=== PATIENT | female | born 1980 ===

== ENCOUNTER 2018-05-15 19:05 | Inpatient (IN) | payer MEDICAID, OTHER ==
[~2018-05-15] VITALS: Ht 167.6 cm; Wt 74.9 kg
--- NOTE | 2018-05-15 19:19 | NUR ---
PRESENT IN [facility] [employer] FOR ABNORMAL LABS. REPORTS N/V/D X 4 DAYS- SEEN BY MEDICAL AT FACILITY AND FOUND TO HAVE DECREASED KIDNEY FUNCTION-TRANSFERRED FOR EVAL. ON ARRIVAL 99.1,79, 121/53. APPEARS WELL. PLACED ON MONITOR/CALL RODRIGUEZ IN HAND
[2018-05-15] MEDS ORDERED: OMEPRAZOLE (19:38)
[2018-05-15] MEDS ORDERED: LISINOPRIL (19:38)
[2018-05-15 19:40] LABS: BASOPHILS # (AUTO) 0.03 x10^3/uL (0-0.1); BASOPHILS % (AUTO) 0 % (0-1); EOSINOPHILS # (AUTO) 0.27 x10^3/uL (0-0.4); EOSINOPHILS % (AUTO) 4 % (1-7); LYMPHOCYTES # (AUTO) 2.18 x10^3/uL (1-3.4); LYMPHOCYTES % (AUTO) 33 % (22-44); MD NO; MEAN CORPUSCULAR HEMOGLOBIN 24.4 pg (27.0-34.8); MEAN CORPUSCULAR HGB CONC 32.5 g/dL (32.4-35.8); MEAN PLATELET VOLUME 8.4 fL (7.4-10.4); MONOCYTES # (AUTO) 0.62 x10^3/uL (0.2-0.8); MONOCYTES % (AUTO) 9 % (2-9); NEUTROPHILS # (AUTO) 3.46 x10^3/uL (1.8-6.8); NEUTROPHILS % (AUTO) 53 % (42-75); PLATELET COUNT 380 x10^3/uL (130-400); RED BLOOD COUNT 4.73 x10^6/uL (3.82-5.3); RED CELL DISTRIBUTION WIDTH 20.5 % (9.6-15.2)
[2018-05-15 19:41] LABS: ALANINE AMINOTRANSFERASE 18 U/L (12-78); ALBUMIN 3.7 g/dL (3.4-5.0); ANION GAP 5 mmol/L (5-15); CALCIUM 8.3 mg/dL (8.5-10.1); CHLORIDE 106 mmol/L (98-107); CREATININE 2.54 mg/dL (0.55-1.02)
[2018-05-15 19:46] LABS: ALKALINE PHOSPHATASE 85 U/L (45-117); BILIRUBIN,TOTAL 0.4 mg/dL (0.2-1.0); TOTAL PROTEIN 7.2 g/dL (6.4-8.2)
[2018-05-15 19:52] LABS: CULTURE INDICATED? YES; MICROSCOPIC INDICATED
--- NOTE | 2018-05-15 20:43 | NUR ---
pt resting in room with eduar x2 at bedside. vss. no needs at this time. awaiting room assignment.
[2018-05-15] MEDS ORDERED: SODIUM CHLORIDE 0.9% 1,000ML IVBOLUS ONE (21:00)
--- NOTE | 2018-05-15 21:00 | NUR ---
hospitalist to bedside for assessment.
[2018-05-15] MEDS ORDERED: ACETAMINOPHEN 325 MG TABLET PO PRN (21:30)
[2018-05-15] MEDS ORDERED: POTASSIUM CHLORIDE 20 MEQ TAB.ER.PRT PO ONE (21:30)
[2018-05-15] MEDS ORDERED: LABETALOL 5MG/ML, 20ML IVPush PRN (21:30)
[2018-05-15 22:00] VITALS: BP 88/56
[2018-05-15] MEDS ORDERED: POTASSIUM CHLORIDE 20 MEQ in SODIUM CHLORIDE 0.9% 250 ML IV ONE (22:17)
[2018-05-15] MEDS ORDERED: PLEASE ENTER ALLERGIES MC SCH (22:30)
[2018-05-15] MEDS: HEPARIN 5,000 UNITS/ML, 1ML SQ SCH (23:03)
[2018-05-15] MEDS: LACTATED RINGERS 1,000 ML IV SCH (23:04)
[2018-05-15 23:24] VITALS: BP 88/56
[2018-05-16 01:32] VITALS: BP 107/68
[2018-05-16] MEDS: LACTATED RINGERS 1,000 ML IV SCH ×4 (05:41→21:03)
[2018-05-16] MEDS: OMEPRAZOLE 20 MG CAPSULE.DR PO SCH (05:44)
[2018-05-16 05:53] LABS: ANION GAP 6 mmol/L (5-15); CALCIUM 8.1 mg/dL (8.5-10.1); CHLORIDE 110 mmol/L (98-107); CREATININE 1.42 mg/dL (0.55-1.02)
[2018-05-16] MEDS: HEPARIN 5,000 UNITS/ML, 1ML SQ SCH ×3 (06:44→23:05)
[2018-05-16 07:31] VITALS: BP 92/62
[2018-05-16 14:12] VITALS: BP 104/62
[2018-05-16] MEDS: ONDANSETRON 2MG/ML, 2ML IVPush PRN ×2 (17:15→23:05)
[2018-05-16 17:38] LABS: CLOSTRIDIUM DIFFICILE ANTIGEN NEGATIVE; CLOSTRIDIUM DIFFICILE TOXIN NEGATIVE (Negative)
[2018-05-16 20:47] VITALS: BP 116/56
[2018-05-17] MEDS: LACTATED RINGERS 1,000 ML IV SCH ×5 (02:01→22:33)
[2018-05-17 02:16] VITALS: BP 102/53
[2018-05-17] MEDS: OMEPRAZOLE 20 MG CAPSULE.DR PO SCH (05:10)
[2018-05-17] MEDS: ONDANSETRON 2MG/ML, 2ML IVPush PRN ×3 (05:10→18:16)
[2018-05-17 06:11] LABS: BASOPHILS # (AUTO) 0.03 x10^3/uL (0-0.1); BASOPHILS % (AUTO) 1 % (0-1); EOSINOPHILS # (AUTO) 0.12 x10^3/uL (0-0.4); EOSINOPHILS % (AUTO) 2 % (1-7); LYMPHOCYTES # (AUTO) 1.71 x10^3/uL (1-3.4); LYMPHOCYTES % (AUTO) 33 % (22-44); MD NO; MEAN CORPUSCULAR HGB CONC 31.7 g/dL (32.4-35.8); MEAN CORPUSCULAR VOLUME 75.8 fL (80-100); MEAN PLATELET VOLUME 8.3 fL (7.4-10.4); MONOCYTES # (AUTO) 0.56 x10^3/uL (0.2-0.8); MONOCYTES % (AUTO) 11 % (2-9); NEUTROPHILS # (AUTO) 2.81 x10^3/uL (1.8-6.8); NEUTROPHILS % (AUTO) 54 % (42-75); PLATELET COUNT 340 x10^3/uL (130-400); RED BLOOD COUNT 4.05 x10^6/uL (3.82-5.3); RED CELL DISTRIBUTION WIDTH 21.5 % (9.6-15.2)
[2018-05-17 06:18] LABS: CALCIUM 8.4 mg/dL (8.5-10.1); CHLORIDE 116 mmol/L (98-107)
[2018-05-17 06:24] LABS: ALANINE AMINOTRANSFERASE 21 U/L (12-78); ALKALINE PHOSPHATASE 67 U/L (45-117); ANION GAP 6 mmol/L (5-15); BILIRUBIN,TOTAL 0.3 mg/dL (0.2-1.0); CREATININE 0.68 mg/dL (0.55-1.02); TOTAL PROTEIN 6.2 g/dL (6.4-8.2)
[2018-05-17] MEDS: HEPARIN 5,000 UNITS/ML, 1ML SQ SCH ×3 (06:43→22:33)
[2018-05-17 07:51] VITALS: BP 106/60
[2018-05-17 14:35] VITALS: BP 109/63
[2018-05-17 19:13] VITALS: BP 113/62
[2018-05-18 01:28] VITALS: BP 108/55
[2018-05-18] MEDS: LACTATED RINGERS 1,000 ML IV SCH ×4 (03:41→20:26)
[2018-05-18] MEDS: HEPARIN 5,000 UNITS/ML, 1ML SQ SCH ×2 (06:21→15:48)
[2018-05-18] MEDS: OMEPRAZOLE 20 MG CAPSULE.DR PO SCH (06:21)
[2018-05-18 08:15] VITALS: BP 115/61
[2018-05-18 08:34] LABS: BASOPHILS # (AUTO) 0.02 x10^3/uL (0-0.1); BASOPHILS % (AUTO) 0 % (0-1); EOSINOPHILS # (AUTO) 0.27 x10^3/uL (0-0.4); EOSINOPHILS % (AUTO) 5 % (1-7); LYMPHOCYTES # (AUTO) 1.69 x10^3/uL (1-3.4); LYMPHOCYTES % (AUTO) 33 % (22-44); MD NO; MEAN CORPUSCULAR HEMOGLOBIN 24.2 pg (27.0-34.8); MEAN CORPUSCULAR HGB CONC 31.4 g/dL (32.4-35.8); MEAN PLATELET VOLUME 8.6 fL (7.4-10.4); MONOCYTES # (AUTO) 0.41 x10^3/uL (0.2-0.8); MONOCYTES % (AUTO) 8 % (2-9); NEUTROPHILS # (AUTO) 2.72 x10^3/uL (1.8-6.8); NEUTROPHILS % (AUTO) 53 % (42-75); PLATELET COUNT 311 x10^3/uL (130-400); RED BLOOD COUNT 4.01 x10^6/uL (3.82-5.3); RED CELL DISTRIBUTION WIDTH 21.1 % (9.6-15.2)
[2018-05-18 08:44] LABS: ALBUMIN 2.7 g/dL (3.4-5.0); ANION GAP 5 mmol/L (5-15); CALCIUM 7.9 mg/dL (8.5-10.1); CHLORIDE 113 mmol/L (98-107)
[2018-05-18 08:48] LABS: ALANINE AMINOTRANSFERASE 17 U/L (12-78); ALKALINE PHOSPHATASE 68 U/L (45-117); BILIRUBIN,TOTAL 0.4 mg/dL (0.2-1.0); CREATININE 0.66 mg/dL (0.55-1.02); TOTAL PROTEIN 5.8 g/dL (6.4-8.2)
[2018-05-18] MEDS: FERROUS SULFATE 325 MG TABLET PO SCH ×2 (08:51→17:10)
[2018-05-18 12:30] VITALS: BP 107/69
[2018-05-18 19:16] VITALS: BP 119/45
[2018-05-19 00:17] VITALS: BP 109/55
[2018-05-19] MEDS: LACTATED RINGERS 1,000 ML IV SCH ×3 (01:17→11:28)
[2018-05-19] MEDS: HEPARIN 5,000 UNITS/ML, 1ML SQ SCH (06:22)
[2018-05-19] MEDS: OMEPRAZOLE 20 MG CAPSULE.DR PO SCH (06:22)
[2018-05-19 07:51] VITALS: BP 107/57
[2018-05-19] MEDS: FERROUS SULFATE 325 MG TABLET PO SCH (08:30)
[2018-05-19] MEDS ORDERED: OMEP-110 PO (12:40)
[2018-05-19] MEDS ORDERED: FERR-51 PO (12:40)
[2018-05-19 12:43] VITALS: BP 105/67
== END 2018-05-19 14:21 | DRG 392 ==
LOC: ED 20:37 → EDIP 20:51 → 4NOR 22:00
PROVIDERS: ADMIT Family Medicine; ATTEND Family Medicine
DX: A08.4 Viral intestinal infection, unspecified (principal); N17.9 Acute kidney failure, unspecified; D50.9 Iron deficiency anemia, unspecified; E86.0 Dehydration; E86.1 Hypovolemia; E87.6 Hypokalemia; F17.210 Nicotine dependence, cigarettes, uncomplicated; I10 Essential (primary) hypertension; K21.9 Gastro-esophageal reflux disease without esophagitis; Z83.3 Family history of diabetes mellitus; F12.10 Cannabis abuse, uncomplicated
CPT/HCPCS: 36415; 76770; 80048; 80053; 81001; 82550; 82728; 83540; 83550; 83690; 83735; 84702; 85025; 87086; 87324; 87338; 93005; 96360; G0378; J1644; J2405; J3480; J7030; J7050; J7120